=== PATIENT | male | born 1955 | race African-American/Black ===

== ENCOUNTER 2024-02-24 02:08 | Inpatient (IN) | payer BC, MEDICAID, MEDICARE ==
[~2024-02-24] VITALS: Ht 172.7 cm; Wt 145.7 kg
[2024-02-24] VITALS (80 sets, daily range): BP systolic 60–208; BP diastolic 44–143; PULSE 46–129; RESP 14–32; TEMP 97.2–97.3
[2024-02-24] MEDS: MIDAZOLAM HCL 100 MG in DEXT 5% WATER 80 ML IV ONE (02:30)
[2024-02-24] MEDS: SODIUM CHLORIDE 0.9% 1,000 ML IV ONE ×2 (02:34→05:29)
[2024-02-24] MEDS ORDERED: MIDAZOLAM 100MG/100ML PREMIX IV PRN (02:45)
[2024-02-24] MEDS: NOREPINEPHRINE 8MG/250ML PMX 250 ML IV STA (02:56)
[2024-02-24 03:21] LABS: DIFFERENTIAL COMMENT 0; HEMOGLOBIN. 11.2 g/dL (14.0-18.0); MEAN CORPUSCULAR HEMOGLOBIN 33.5 pg (28.0-32.0); MEAN CORPUSCULAR HGB CONC 32.9 g/dL (31.0-37.0); MEAN CORPUSCULAR VOLUME 101.6 fL (80.0-94.0); MEAN PLATELET VOLUME 7.4 fl (7.4-10.4); PLATELET 248 x1000/uL (130-400); RED BLOOD CELL COUNT 3.35 mill/uL (4.7-6.1); RED CELL DISTRIBUTION WIDTH 17.6 % (11.6-14.6); WHITE BLOOD COUNT 8.7 x1000/uL (4.5-11.0)
[2024-02-24 03:23] LABS: CHLORIDE 105 mEq/L (98-107); SODIUM 140 mEq/L (136-145)
[2024-02-24 03:24] LABS: CALCIUM 8.9 mg/dL (8.7-10.4); CARBON DIOXIDE 14 mEq/L (21-32)
[2024-02-24 03:29] LABS: CREATININE 1.7 mg/dL (0.6-1.3); GLUCOSE 245 mg/dL (70-105); UREA NITROGEN BLOOD 21 mg/dL (9-23)
[2024-02-24 03:36] LABS: D-DIMER 18.64 mg/L FEU (<0.50); INR 1.1; PROTHROMBIN TIME 12.5 sec (9.6-11.0)
[2024-02-24 03:39] LABS: BG BASE EXCESS -13.2 mmol/L (-2.0-2.0); BG CARBOXYHEMOGLOBIN 0.1 % (0.5-1.5); BG DEOXYHEMOGLOBIN 4.8 % (0.0-5.0); BG FRACTION INSPIRED OXYGEN 100; BG HCO3 ACT 15.2 mmol/L (22.0-26.0); BG METHEMOGLOBIN 0.4 % (0.0-1.5); BG OXYGEN SATURATION 95.2 % (92.0-98.5); BG OXYHEMOGLOBIN 94.7 % (94.0-97.0); BG PH 7.155 (7.350-7.450); BG PO2 94.5 mmHg (75.0-100.0); BG SAMPLE SITE LEFT RADIAL; BG TOTAL HEMOGLOBIN 13.1 g/dL (12.0-18.0); BG VENT MODE VENT - AC
[2024-02-24 03:41] LABS: LACTIC ACID 11.1 mmol/L (0.4-2.0); POTASSIUM 1.8 mEq/L (3.5-5.1); TROPONIN I HIGH SENSITIVITY 320 ng/L (3.0-53)
[2024-02-24 03:42] LABS: ETHANOL BLOOD < 10 mg/dL (<10)
[2024-02-24 04:12] LABS: GIANT PLATELETS FEW; OVALOCYTES 1+; PLATELET ESTIMATE NORMAL; TARGET CELLS 1+
[2024-02-24] MEDS ORDERED: CLONIDINE 0.1MG TABLET PO PRN (04:45)
[2024-02-24] MEDS ORDERED: MAGNESIUM/ALUMINUM HYDROXIDE/SIMETHICONE 30ML UDC PO PRN (04:45)
[2024-02-24] MEDS ORDERED: PIPERACILLIN/TAZOBACTAM 3.375 G in DEXTROSE 5% WATER 50 ML IV SCH (04:45)
[2024-02-24] MEDS ORDERED: POTASSIUM CHLORIDE 40 MEQ in DEXT 5% WATER 230 ML IV ONE ×3 (05:00→14:45)
[2024-02-24 05:19] LABS: TROPONIN I HIGH SENSITIVITY 1306 ng/L (3.0-53)
[2024-02-24] MEDS: KCL 20MEQ/100ML PREMIX 100 ML IV SCH (05:24)
[2024-02-24] MEDS: MAGNESIUM 2 G PREMIX 50 ML IV NR (05:25)
[2024-02-24] MEDS: PROPOFOL 10MG/ML 100ML 100 ML IV ONE (05:26)
[2024-02-24] MEDS: EPINEPHRINE 5 MG in SODIUM CHLORIDE 0.9% 245 ML IV PRN (05:27)
[2024-02-24] MEDS ORDERED: DEXTROSE 50% WATER 50ML SYRINGE IV PRN (06:00)
[2024-02-24 06:14] LABS: CARBON DIOXIDE 17 mEq/L (21-32); CHLORIDE 105 mEq/L (98-107); SODIUM 138 mEq/L (136-145)
[2024-02-24 06:15] LABS: CALCIUM 8.9 mg/dL (8.7-10.4)
[2024-02-24 06:19] LABS: GLUCOSE 228 mg/dL (70-105); IRON 96 ug/dL (65-175)
[2024-02-24 06:20] LABS: CREATINE KINASE MB FRACTION 16.6 ng/mL (0.5-3.6); UREA NITROGEN BLOOD 31 mg/dL (9-23)
[2024-02-24 06:21] LABS: ALANINE AMINOTRANSFERASE 76 IU/L (10-49); ALBUMIN 3.3 g/dL (3.2-4.8); AMMONIA 46 uMol/L (<32); ASPARTATE AMINOTRANSFERASE 116 IU/L (<34)
[2024-02-24 06:22] LABS: BILIRUBIN DIRECT 0.3 mg/dL (<=3.0); BILIRUBIN TOTAL 0.7 mg/dL (0.1-1.0); PHOSPHORUS 4.5 mg/dL (2.5-4.9); PROTEIN TOTAL 7.2 g/dL (6.0-8.3); TOTAL IRON BINDING CAPACITY 257 ug/dl (250-425)
[2024-02-24 06:32] LABS: FERRITIN 1347 ng/mL (22-322)
[2024-02-24 06:33] LABS: FOLIC ACID (FOLATE) SERUM > 20.00 ng/mL (>5.38)
[2024-02-24 06:35] LABS: POTASSIUM 1.8 mEq/L (3.5-5.1)
[2024-02-24 07:28] LABS: LACTIC ACID 7.5 mmol/L (0.4-2.0)
[2024-02-24 07:29] LABS: VITAMIN B12 SERUM > 2000 pg/mL (211-911)
[2024-02-24] MEDS: IOHEXOL-350 100 ML BOTTLE ONE (07:37)
[2024-02-24] MEDS: PIPERACILLIN/TAZO 3.375G/50ML IV SCH (07:49)
[2024-02-24] MEDS: LACTATED RINGERS 1,000 ML IV ONE (07:50)
[2024-02-24] MEDS: NOREPINEPHRINE 8MG/250ML PMX 250 ML IV PRN (07:51)
[2024-02-24] MEDS: INSULIN LISPRO 100 UNITS/ML SUBCUT SCH (08:20)
[2024-02-24] MEDS ORDERED: NOREPINEPHRINE 32 MG in DEXT 5% WATER 218 ML IV PRN (08:45)
[2024-02-24] MEDS ORDERED: EPINEPHRINE 5 MG in SODIUM CHLORIDE 0.9% 245 ML IV PRN ×2 (08:45→09:00)
[2024-02-24] MEDS ORDERED: PROPOFOL 10MG/ML 100ML 100 ML IV SCH (09:00)
[2024-02-24] MEDS ORDERED: PROPOFOL 10MG/ML 100ML 100 ML IV PRN (09:00)
[2024-02-24] MEDS: BLOOD SUGAR DIAGNOSTIC STRIP TEST SCH (09:06)
[2024-02-24] MEDS: KCL 20MEQ/100ML X 2 FOR TOTAL KCL 40MEQ/200ML IV SCH ×3 (09:08→20:38)
[2024-02-24] MEDS: PANTOPRAZOLE SODIUM 40 MG/VIAL IV SCH (09:08)
[2024-02-24] MEDS: SODIUM BICARBONATE 8.4% 1 MEQ/ML 50ML SYR IV NR (09:09)
[2024-02-24] MEDS: VANCOMYCIN 2,000 MG in DEXT 5% WATER 500 ML IV NR (09:41)
[2024-02-24] MEDS: SODIUM BICARBONATE 100 MEQ in SODIUM CHLORIDE 0.45% 900 ML IV SCH (09:42)
[2024-02-24] MEDS: ENOXAPARIN 120MG/0.8ML SYR SUBCUT SCH (09:43)
[2024-02-24 11:00] LABS: BG BASE EXCESS -12.9 mmol/L (-2.0-2.0); BG CARBOXYHEMOGLOBIN 0.3 % (0.5-1.5); BG DEOXYHEMOGLOBIN 21.8 % (0.0-5.0); BG FRACTION INSPIRED OXYGEN 100; BG METHEMOGLOBIN 0.3 % (0.0-1.5); BG OXYGEN SATURATION 78.1 % (92.0-98.5); BG OXYHEMOGLOBIN 77.6 % (94.0-97.0); BG PCO2 35.4 mmHg (35.0-45.0); BG PH 7.214 (7.350-7.450); BG PO2 46.1 mmHg (75.0-100.0); BG SAMPLE SITE ALINE; BG TOTAL HEMOGLOBIN 13.7 g/dL (12.0-18.0); BG VENT MODE VENT - AC
[2024-02-24] MEDS ORDERED: DOPAMINE 400MG/250ML PREMIX 250 ML IV PRN (11:30)
[2024-02-24] MEDS: NOREPINEPHRINE 32 MG in DEXT 5% WATER 218 ML IV PRN (12:54)
[2024-02-24 13:08] LABS: HEMATOCRIT. 37.3 % (42.0-52.0); HEMOGLOBIN. 12.8 g/dL (14.0-18.0); MEAN CORPUSCULAR HEMOGLOBIN 33.5 pg (28.0-32.0); MEAN CORPUSCULAR HGB CONC 34.3 g/dL (31.0-37.0); MEAN CORPUSCULAR VOLUME 97.8 fL (80.0-94.0); MEAN PLATELET VOLUME 7.6 fl (7.4-10.4); PLATELET 274 x1000/uL (130-400); RED BLOOD CELL COUNT 3.81 mill/uL (4.7-6.1); RED CELL DISTRIBUTION WIDTH 16.5 % (11.6-14.6); WHITE BLOOD COUNT 5.7 x1000/uL (4.5-11.0)
[2024-02-24 13:14] LABS: DIFFERENTIAL COMMENT 1
[2024-02-24 13:23] LABS: CHLORIDE 107 mEq/L (98-107); SODIUM 140 mEq/L (136-145)
[2024-02-24 13:24] LABS: CALCIUM 8.2 mg/dL (8.7-10.4); CARBON DIOXIDE 18 mEq/L (21-32)
[2024-02-24 13:29] LABS: CREATININE 2.3 mg/dL (0.6-1.3); GLUCOSE 276 mg/dL (70-105); UREA NITROGEN BLOOD 33 mg/dL (9-23)
[2024-02-24 13:31] LABS: PHOSPHORUS 1.6 mg/dL (2.5-4.9)
[2024-02-24 13:32] LABS: BG BASE EXCESS -12.9 mmol/L (-2.0-2.0); BG CARBOXYHEMOGLOBIN 0.3 % (0.5-1.5); BG FRACTION INSPIRED OXYGEN 100; BG HCO3 ACT 15.5 mmol/L (22.0-26.0); BG OXYGEN SATURATION 73.9 % (92.0-98.5); BG OXYHEMOGLOBIN 73.7 % (94.0-97.0); BG PCO2 44.4 mmHg (35.0-45.0); BG PO2 43.1 mmHg (75.0-100.0); BG SAMPLE SITE ALINE; BG TOTAL HEMOGLOBIN 14.3 g/dL (12.0-18.0); BG VENT MODE VENT - PRVC
[2024-02-24] MEDS: EPINEPHRINE 10 MG in SODIUM CHLORIDE 0.9% 240 ML IV PRN (13:43)
[2024-02-24 13:50] LABS: POTASSIUM 1.2 mEq/L (3.5-5.1)
[2024-02-24] MEDS ORDERED: IPRATROPIUM BROMIDE (0.02%) 0.5MG/2.5ML NEB HHN SCH (14:00)
[2024-02-24] MEDS: IPRATROPIUM/ALBUTEROL 0.5-3(2.5)MG/3ML NEB HHN SCH (14:21)
[2024-02-24] MEDS: ACETYLCYSTEINE 200MG/ML 20% VIAL 4ML INH SCH (14:22)
[2024-02-24] MEDS ORDERED: KCL 20MEQ/100ML X 2 FOR TOTAL KCL 40MEQ/200ML IV SCH (15:00)
[2024-02-24 15:19] LABS: PLATELET ESTIMATE NORMAL
[2024-02-24] MEDS: METHYLPREDNISOLONE SOD SUCC 40MG/ML (ACT-O-VIAL) IV SCH (16:17)
[2024-02-24 19:48] LABS: CREATINE KINASE MB FRACTION 14.6 ng/mL (0.5-3.6)
[2024-02-24 21:46] LABS: PHOSPHORUS 1.8 mg/dL (2.5-4.9)
[2024-02-24 22:04] LABS: POTASSIUM 1.6 mEq/L (3.5-5.1)
[2024-02-24] MEDS: METHYLPREDNISOLONE SOD SUCC 125MG/2ML (ACT-O-VIAL) IV SCH (22:56)
[2024-02-24] MEDS: POTASSIUM PHOSPHATE 15 MMOL in DEXT 5% WATER 245 ML IV NR (22:59)
[2024-02-24 23:58] LABS: BG BASE EXCESS -6.1 mmol/L (-2.0-2.0); BG CARBOXYHEMOGLOBIN 0.3 % (0.5-1.5); BG DEOXYHEMOGLOBIN 23.4 % (0.0-5.0); BG FRACTION INSPIRED OXYGEN 100; BG METHEMOGLOBIN 0.2 % (0.0-1.5); BG OXYGEN SATURATION 76.5 % (92.0-98.5); BG OXYHEMOGLOBIN 76.1 % (94.0-97.0); BG PCO2 36.5 mmHg (35.0-45.0); BG PH 7.335 (7.350-7.450); BG PO2 39.6 mmHg (75.0-100.0); BG SAMPLE SITE ALINE; BG TOTAL HEMOGLOBIN 14.3 g/dL (12.0-18.0); BG VENT MODE VENT - AC
[2024-02-25] VITALS (111 sets, daily range): BP systolic 78–172; BP diastolic 32–98; PULSE 83–122; RESP 0–33; TEMP 97.7–101.8
[2024-02-25 02:10] LABS: PHOSPHORUS 2.7 mg/dL (2.5-4.9)
[2024-02-25 02:14] LABS: POTASSIUM 1.8 mEq/L (3.5-5.1)
[2024-02-25] MEDS: KCL 20MEQ/100ML PREMIX 100 ML IV NR ×3 (02:28→05:33)
[2024-02-25 08:21] LABS: BG BASE EXCESS -16.4 mmol/L (-2.0-2.0); BG CARBOXYHEMOGLOBIN 0.3 % (0.5-1.5); BG DEOXYHEMOGLOBIN 13.3 % (0.0-5.0); BG FRACTION INSPIRED OXYGEN 100; BG HCO3 ACT 7.8 mmol/L (22.0-26.0); BG METHEMOGLOBIN 1.2 % (0.0-1.5); BG OXYGEN SATURATION 86.5 % (92.0-98.5); BG OXYHEMOGLOBIN 85.2 % (94.0-97.0); BG PCO2 14.6 mmHg (35.0-45.0); BG PH 7.348 (7.350-7.450); BG PO2 50.3 mmHg (75.0-100.0); BG SAMPLE SITE ALINE; BG TOTAL HEMOGLOBIN 5.7 g/dL (12.0-18.0); BG VENT MODE VENT - AC
[2024-02-25 08:49] LABS: HEMATOCRIT. 37.1 % (42.0-52.0); HEMOGLOBIN. 12.9 g/dL (14.0-18.0); MEAN CORPUSCULAR HEMOGLOBIN 32.8 pg (28.0-32.0); MEAN CORPUSCULAR HGB CONC 34.6 g/dL (31.0-37.0); MEAN CORPUSCULAR VOLUME 94.6 fL (80.0-94.0); MEAN PLATELET VOLUME 7.7 fl (7.4-10.4); PLATELET 243 x1000/uL (130-400); RED BLOOD CELL COUNT 3.92 mill/uL (4.7-6.1); RED CELL DISTRIBUTION WIDTH 16.2 % (11.6-14.6); WHITE BLOOD COUNT 15.1 x1000/uL (4.5-11.0)
[2024-02-25 09:01] LABS: LACTIC ACID 3.3 mmol/L (0.4-2.0)
[2024-02-25 09:02] LABS: CHLORIDE 104 mEq/L (98-107); SODIUM 140 mEq/L (136-145)
[2024-02-25 09:03] LABS: CALCIUM 7.5 mg/dL (8.7-10.4); CARBON DIOXIDE 21 mEq/L (21-32)
[2024-02-25 09:08] LABS: DIFFERENTIAL COMMENT 1; GLUCOSE 148 mg/dL (70-105); POTASSIUM 1.8 mEq/L (3.5-5.1); TRIGLYCERIDE 58 mg/dL (0-150); UREA NITROGEN BLOOD 42 mg/dL (9-23)
[2024-02-25 09:09] LABS: LDL CHOLESTEROL 25 mg/dL (5-100)
[2024-02-25 09:10] LABS: CHOLESTEROL 73 mg/dL (<200); HDL CHOLESTEROL 34 mg/dL (>55); PHOSPHORUS 4.4 mg/dL (2.5-4.9)
[2024-02-25 09:12] LABS: T4 FREE 1.12 ng/dL (0.89-1.76)
[2024-02-25 09:13] LABS: THYROID STIMULATING HORMONE 0.34 uIU/mL (0.55-4.78)
[2024-02-25 10:12] LABS: CREATININE 3.5 mg/dL (0.6-1.3)
[2024-02-25 10:14] LABS: TROPONIN I HIGH SENSITIVITY 12766 ng/L (3.0-53)
[2024-02-25] MEDS ORDERED: POTASSIUM CHLORIDE 40 MEQ in DEXT 5% WATER 230 ML IV ONE ×2 (10:15→17:30)
[2024-02-25] MEDS ORDERED: POTASSIUM CHLORIDE 20 MEQ in DEXT 5% WATER 90 ML IV ONE ×2 (10:15→17:30)
[2024-02-25] MEDS: KCL 20MEQ/100ML X 3 FOR TOTAL KCL 60MEQ/300ML IV SCH (11:10)
[2024-02-25] MEDS: SODIUM CHLORIDE 10% FOR INH 15ML NEB INH SCH (12:06)
[2024-02-25 12:43] LABS: PHOSPHORUS 5.1 mg/dL (2.5-4.9)
[2024-02-25 12:55] LABS: POTASSIUM 1.8 mEq/L (3.5-5.1)
[2024-02-25] MEDS: DEXT 5%/0.45% NACL KCL 20MEQ/L 1,000 ML IV SCH (13:47)
[2024-02-25 14:31] LABS: PLATELET ESTIMATE NORMAL
[2024-02-25] MEDS: SODIUM CHLORIDE 3% FOR INH 4ML NEB INH SCH (15:42)
[2024-02-25] MEDS: ACETYLCYSTEINE 200MG/ML 20% VIAL 4ML INH SCH (15:42)
[2024-02-25 16:59] LABS: PHOSPHORUS 4.6 mg/dL (2.5-4.9)
[2024-02-25 17:12] LABS: POTASSIUM 2.1 mEq/L (3.5-5.1)
[2024-02-25] MEDS: KCL 20MEQ/100ML PREMIX 100 ML IV SCH (17:58)
[2024-02-25] MEDS: ACETAMINOPHEN 650MG/20.3ML UDC GT PRN (19:47)
[2024-02-25] MEDS ORDERED: SODIUM CHLORIDE 10% FOR INH 15ML NEB INH SCH (20:00)
[2024-02-25] MEDS: VANCOMYCIN 250MG/5ML ORAL SYRINGE PO SCH (23:34)
[2024-02-26] VITALS (98 sets, daily range): BP systolic 68–195; BP diastolic 31–114; PULSE 96–131; RESP 0–30; TEMP 97.6–99.2
[2024-02-26 00:21] LABS: POTASSIUM 2.2 mEq/L (3.5-5.1)
[2024-02-26 00:24] LABS: PHOSPHORUS 3.7 mg/dL (2.5-4.9)
[2024-02-26] MEDS: KCL 20MEQ/100ML PREMIX 100 ML IV PRN (02:22)
[2024-02-26 08:31] LABS: HEMATOCRIT. 34.1 % (42.0-52.0); HEMOGLOBIN. 12.1 g/dL (14.0-18.0); MEAN CORPUSCULAR HEMOGLOBIN 33.2 pg (28.0-32.0); MEAN CORPUSCULAR HGB CONC 35.4 g/dL (31.0-37.0); MEAN CORPUSCULAR VOLUME 93.9 fL (80.0-94.0); MEAN PLATELET VOLUME 7.8 fl (7.4-10.4); PLATELET 163 x1000/uL (130-400); RED BLOOD CELL COUNT 3.63 mill/uL (4.7-6.1); RED CELL DISTRIBUTION WIDTH 16.4 % (11.6-14.6)
[2024-02-26 08:43] LABS: DIFFERENTIAL COMMENT 1
[2024-02-26 08:45] LABS: CARBON DIOXIDE 20 mEq/L (21-32); CHLORIDE 104 mEq/L (98-107); SODIUM 136 mEq/L (136-145)
[2024-02-26 08:51] LABS: GLUCOSE 229 mg/dL (70-105); UREA NITROGEN BLOOD 59 mg/dL (9-23)
[2024-02-26 08:53] LABS: PHOSPHORUS 3.6 mg/dL (2.5-4.9)
[2024-02-26 09:15] LABS: CREATININE 6.1 mg/dL (0.6-1.3)
[2024-02-26 09:16] LABS: POTASSIUM 1.8 mEq/L (3.5-5.1)
[2024-02-26] MEDS: ENOXAPARIN 120MG/0.8ML SYR SUBCUT SCH (09:49)
[2024-02-26] MEDS: KCL 20MEQ/100ML PREMIX 100 ML IV SCH ×2 (10:20→18:30)
[2024-02-26] MEDS ORDERED: POTASSIUM CHLORIDE 40 MEQ in DEXT 5% WATER 230 ML IV ONE (11:30)
[2024-02-26] MEDS ORDERED: CALCIUM GLUCONATE 1,000 MG in DEXT 5% WATER 90 ML IV ONE (12:00)
[2024-02-26] MEDS: SODIUM BICARBONATE 650 MG TABLET PO SCH (12:01)
[2024-02-26] MEDS: KCL 20MEQ/100ML X 2 FOR TOTAL KCL 40MEQ/200ML IV SCH ×2 (12:01→15:23)
[2024-02-26 12:19] LABS: BG BASE EXCESS -7.6 mmol/L (-2.0-2.0); BG CARBOXYHEMOGLOBIN 0.3 % (0.5-1.5); BG DEOXYHEMOGLOBIN 4.6 % (0.0-5.0); BG FRACTION INSPIRED OXYGEN 60; BG HCO3 ACT 18.2 mmol/L (22.0-26.0); BG METHEMOGLOBIN 0.2 % (0.0-1.5); BG OXYGEN SATURATION 95.4 % (92.0-98.5); BG OXYHEMOGLOBIN 94.9 % (94.0-97.0); BG PCO2 37.7 mmHg (35.0-45.0); BG PH 7.301 (7.350-7.450); BG PO2 77.2 mmHg (75.0-100.0); BG SAMPLE SITE ALINE; BG TOTAL HEMOGLOBIN 12.2 g/dL (12.0-18.0); BG TOTAL RESPIRATORY RATE 30 b/min; BG VENT MODE VENT - AC
[2024-02-26] MEDS: MIDODRINE HCL 5MG TABLET PO SCH (13:18)
[2024-02-26] MEDS: CALCIUM GLUCONATE 1GM PREMIX 50 ML IV NR (13:18)
[2024-02-26 14:47] LABS: PLATELET ESTIMATE NORMAL; SMUDGE CELLS 1+
[2024-02-26] MEDS: POTASSIUM CHLORIDE 20MEQ/PACKET GT SCH (16:36)
[2024-02-26] MEDS: BLOOD SUGAR DIAGNOSTIC STRIP TEST SCH (17:29)
[2024-02-26] MEDS: INSULIN LISPRO 100 UNITS/ML SUBCUT SCH (17:36)
[2024-02-26 19:20] LABS: POTASSIUM 2.3 mEq/L (3.5-5.1)
[2024-02-26] MEDS: PIPERACILLIN/TAZO 3.375G/50ML IV SCH (20:12)
[2024-02-27] VITALS (105 sets, daily range): BP systolic 33–157; BP diastolic 13–129; PULSE 90–139; RESP 0–31; TEMP 97.8–98.7
[2024-02-27 00:11] LABS: POTASSIUM 3.4 mEq/L (3.5-5.1)
[2024-02-27 04:57] LABS: HEMATOCRIT. 32.8 % (42.0-52.0); HEMOGLOBIN. 11.4 g/dL (14.0-18.0); MEAN CORPUSCULAR HEMOGLOBIN 32.6 pg (28.0-32.0); MEAN CORPUSCULAR HGB CONC 34.6 g/dL (31.0-37.0); MEAN CORPUSCULAR VOLUME 94.3 fL (80.0-94.0); MEAN PLATELET VOLUME 8.2 fl (7.4-10.4); PLATELET 153 x1000/uL (130-400); RED BLOOD CELL COUNT 3.48 mill/uL (4.7-6.1); WHITE BLOOD COUNT 19.4 x1000/uL (4.5-11.0)
[2024-02-27 05:05] LABS: DIFFERENTIAL COMMENT 1
[2024-02-27 05:11] LABS: CREATININE 7.1 mg/dL (0.6-1.3)
[2024-02-27 05:13] LABS: POTASSIUM 2.3 mEq/L (3.5-5.1)
[2024-02-27] MEDS ORDERED: LIDOCAINE HCL 1% 10 MG/ML 10ML VIAL ONE (07:28)
[2024-02-27] MEDS ORDERED: POTASSIUM CHLORIDE 20MEQ TABLET SR PO NR (07:30)
[2024-02-27] MEDS ORDERED: POTASSIUM CHLORIDE 40 MEQ in DEXT 5% WATER 230 ML IV ONE (07:30)
[2024-02-27] MEDS: IPRATROPIUM/ALBUTEROL 0.5-3(2.5)MG/3ML NEB HHN PRN (08:19)
[2024-02-27] MEDS: POTASSIUM CHLORIDE 20MEQ/PACKET PO NR (09:14)
[2024-02-27] MEDS: KCL 20MEQ/100ML X 2 FOR TOTAL KCL 40MEQ/200ML IV SCH (09:15)
[2024-02-27 10:06] LABS: ANISOCYTOSIS 1+; NUCLEATED RED BLOOD CELLS 1 /100 WBC; PLATELET ESTIMATE NORMAL
[2024-02-27 10:59] LABS: BG CARBOXYHEMOGLOBIN 0.2 % (0.5-1.5); BG FRACTION INSPIRED OXYGEN 100; BG HCO3 ACT 11.1 mmol/L (22.0-26.0); BG METHEMOGLOBIN 0.5 % (0.0-1.5); BG OXYHEMOGLOBIN 98.3 % (94.0-97.0); BG PCO2 18.3 mmHg (35.0-45.0); BG PO2 241.9 mmHg (75.0-100.0); BG SAMPLE SITE ALINE; BG VENT MODE VENT - AC
[2024-02-27 12:13] LABS: BG BASE EXCESS -14.1 mmol/L (-2.0-2.0); BG CARBOXYHEMOGLOBIN 0.2 % (0.5-1.5); BG DEOXYHEMOGLOBIN 0.9 % (0.0-5.0); BG FRACTION INSPIRED OXYGEN 100; BG HCO3 ACT 11.6 mmol/L (22.0-26.0); BG METHEMOGLOBIN 0.5 % (0.0-1.5); BG OXYGEN SATURATION 99.1 % (92.0-98.5); BG OXYHEMOGLOBIN 98.4 % (94.0-97.0); BG PCO2 26.9 mmHg (35.0-45.0); BG PH 7.254 (7.350-7.450); BG PO2 330.7 mmHg (75.0-100.0); BG SAMPLE SITE ALINE; BG TOTAL HEMOGLOBIN 10.4 g/dL (12.0-18.0); BG VENT MODE VENT - AC
[2024-02-27 13:18] LABS: BG BASE EXCESS -14.7 mmol/L (-2.0-2.0); BG CARBOXYHEMOGLOBIN 0.3 % (0.5-1.5); BG DEOXYHEMOGLOBIN 13.9 % (0.0-5.0); BG FRACTION INSPIRED OXYGEN 44; BG HCO3 ACT 14.6 mmol/L (22.0-26.0); BG METHEMOGLOBIN 0.3 % (0.0-1.5); BG OXYHEMOGLOBIN 85.5 % (94.0-97.0); BG PCO2 48.2 mmHg (35.0-45.0); BG PH 7.098 (7.350-7.450); BG PO2 62.6 mmHg (75.0-100.0); BG SAMPLE SITE ALINE; BG TOTAL HEMOGLOBIN 11.5 g/dL (12.0-18.0); BG VENT MODE NASAL CANNULA
[2024-02-27 16:38] LABS: POTASSIUM 3.2 mEq/L (3.5-5.1)
[2024-02-27 21:36] LABS: POTASSIUM 3.6 mEq/L (3.5-5.1)
[2024-02-27] MEDS: DEXT 5% IV NR (21:50)
[2024-02-27] MEDS: WATER IV NR (21:50)
[2024-02-27] MEDS: POTASSIUM CHLORIDE IV NR (21:50)
[2024-02-28] VITALS (102 sets, daily range): BP systolic 60–182; BP diastolic 43–111; PULSE 84–110; RESP 0–31; TEMP 97.3–99.4
[2024-02-28 02:16] LABS: POTASSIUM 3.2 mEq/L (3.5-5.1)
[2024-02-28 02:31] LABS: HEMOGLOBIN 10.6 g/dL (14.0-18.0); MEAN CORPUSCULAR HGB CONC 35.4 g/dL (31.0-37.0); MEAN CORPUSCULAR VOLUME 93.1 fL (80.0-94.0); PLATELET 114 x1000/uL (130-400); RED BLOOD CELL COUNT 3.22 mill/uL (4.7-6.1); RED CELL DISTRIBUTION WIDTH 16.2 % (11.6-14.6); WHITE BLOOD COUNT 17.5 x1000/uL (4.5-11.0)
[2024-02-28] MEDS ORDERED: POTASSIUM CHLORIDE 60 MEQ in DEXT 5% WATER 220 ML IV ONE (03:45)
[2024-02-28 04:41] LABS: CALCIUM 6.4 mg/dL (8.7-10.4)
[2024-02-28 04:46] LABS: HEMATOCRIT. 29.9 % (42.0-52.0); HEMOGLOBIN. 10.5 g/dL (14.0-18.0); MEAN CORPUSCULAR HEMOGLOBIN 32.5 pg (28.0-32.0); MEAN PLATELET VOLUME 8.1 fl (7.4-10.4); PLATELET 117 x1000/uL (130-400); RED BLOOD CELL COUNT 3.22 mill/uL (4.7-6.1); WHITE BLOOD COUNT 17.3 x1000/uL (4.5-11.0)
[2024-02-28 04:48] LABS: CREATININE 7.8 mg/dL (0.6-1.3)
[2024-02-28 04:50] LABS: POTASSIUM 2.7 mEq/L (3.5-5.1)
[2024-02-28] MEDS: KCL 20MEQ/100ML X 3 FOR TOTAL KCL 60MEQ/200ML IV SCH (04:58)
[2024-02-28 07:00] LABS: DIFFERENTIAL COMMENT 1
[2024-02-28 09:32] LABS: POTASSIUM 2.8 mEq/L (3.5-5.1)
[2024-02-28] MEDS ORDERED: POTASSIUM CHLORIDE 40 MEQ in DEXT 5% WATER 230 ML IV ONE (09:45)
[2024-02-28] MEDS ORDERED: KCL 20MEQ/100ML X 2 FOR TOTAL KCL 40MEQ/200ML IV SCH (10:00)
[2024-02-28 10:07] LABS: ANISOCYTOSIS 1+; NUCLEATED RED BLOOD CELLS 3 /100 WBC; PLATELET ESTIMATE MARKEDLY DECREASED
[2024-02-28] MEDS: POTASSIUM CHLORIDE 20MEQ/PACKET PO SCH (12:00)
[2024-02-28 15:52] LABS: POTASSIUM 3.9 mEq/L (3.5-5.1)
[2024-02-28 21:42] LABS: POTASSIUM 3.4 mEq/L (3.5-5.1)
[2024-02-29] VITALS (106 sets, daily range): BP systolic 90–148; BP diastolic 61–93; PULSE 70–93; RESP 0–30; TEMP 97.3–98.6
[2024-02-29 05:45] LABS: CALCIUM 6.5 mg/dL (8.7-10.4)
[2024-02-29 05:49] LABS: HEMATOCRIT 27.8 % (42.0-52.0); HEMOGLOBIN 9.7 g/dL (14.0-18.0); MEAN CORPUSCULAR HEMOGLOBIN 32.8 pg (28.0-32.0); MEAN CORPUSCULAR VOLUME 93.9 fL (80.0-94.0); PLATELET 103 x1000/uL (130-400); RED BLOOD CELL COUNT 2.96 mill/uL (4.7-6.1); RED CELL DISTRIBUTION WIDTH 16.2 % (11.6-14.6); WHITE BLOOD COUNT 11.6 x1000/uL (4.5-11.0)
[2024-02-29 05:51] LABS: CREATININE 8.2 mg/dL (0.6-1.3)
[2024-02-29 05:59] LABS: POTASSIUM 2.8 mEq/L (3.5-5.1)
[2024-02-29] MEDS ORDERED: WATER IV ONE (06:30)
[2024-02-29] MEDS ORDERED: POTASSIUM CHLORIDE IV ONE (06:30)
[2024-02-29] MEDS ORDERED: DEXT 5% IV ONE (06:30)
[2024-02-29] MEDS: KCL 20MEQ/100ML PREMIX 100 ML IV SCH ×2 (09:11→15:32)
[2024-02-29] MEDS: POTASSIUM CHLORIDE 20MEQ/PACKET PO NR ×2 (09:11→16:32)
[2024-02-29 14:49] LABS: POTASSIUM 3.3 mEq/L (3.5-5.1)
[2024-03-01] VITALS (110 sets, daily range): BP systolic 85–131; BP diastolic 53–100; PULSE 66–85; RESP 0–21; TEMP 93.1–97.8
[2024-03-01 04:58] LABS: HEMATOCRIT. 31.6 % (42.0-52.0); HEMOGLOBIN. 10.8 g/dL (14.0-18.0); MEAN CORPUSCULAR HEMOGLOBIN 32.7 pg (28.0-32.0); MEAN CORPUSCULAR HGB CONC 34.4 g/dL (31.0-37.0); MEAN CORPUSCULAR VOLUME 95.2 fL (80.0-94.0); MEAN PLATELET VOLUME 8.7 fl (7.4-10.4); PLATELET 97 x1000/uL (130-400); RED BLOOD CELL COUNT 3.31 mill/uL (4.7-6.1); RED CELL DISTRIBUTION WIDTH 16.7 % (11.6-14.6); WHITE BLOOD COUNT 11.3 x1000/uL (4.5-11.0)
[2024-03-01 04:59] LABS: DIFFERENTIAL COMMENT 1
[2024-03-01 05:13] LABS: CALCIUM 6.6 mg/dL (8.7-10.4); POTASSIUM 3.8 mEq/L (3.5-5.1)
[2024-03-01 05:37] LABS: CREATININE 8.9 mg/dL (0.6-1.3)
[2024-03-01 05:39] LABS: PLATELET ESTIMATE SLIGHTLY DECREASED; TEAR DROP CELLS 2+
[2024-03-01 05:40] LABS: OVALOCYTES 1+; TARGET CELLS 1+
[2024-03-01 17:40] LABS: BG BASE EXCESS -15.5 mmol/L (-2.0-2.0); BG CARBOXYHEMOGLOBIN 0.3 % (0.5-1.5); BG FRACTION INSPIRED OXYGEN 50; BG HCO3 ACT 11.8 mmol/L (22.0-26.0); BG METHEMOGLOBIN 0.4 % (0.0-1.5); BG OXYHEMOGLOBIN 98.3 % (94.0-97.0); BG PCO2 32.9 mmHg (35.0-45.0); BG PH 7.173 (7.350-7.450); BG PO2 238.2 mmHg (75.0-100.0); BG SAMPLE SITE RIGHT RADIAL; BG TOTAL HEMOGLOBIN 10.7 g/dL (12.0-18.0); BG VENT MODE VENT - AC
[2024-03-02] VITALS (101 sets, daily range): BP systolic 106–175; BP diastolic 52–89; PULSE 74–108; RESP 6–22; TEMP 93.3–98.4; O2SAT 99
[2024-03-02 01:20] LABS: BG BASE EXCESS -18.1 mmol/L (-2.0-2.0); BG CARBOXYHEMOGLOBIN 0.3 % (0.5-1.5); BG FRACTION INSPIRED OXYGEN 50; BG HCO3 ACT 12.3 mmol/L (22.0-26.0); BG METHEMOGLOBIN 0.5 % (0.0-1.5); BG OXYHEMOGLOBIN 98.2 % (94.0-97.0); BG PCO2 48.3 mmHg (35.0-45.0); BG PH 7.024 (7.350-7.450); BG PO2 198.6 mmHg (75.0-100.0); BG SAMPLE SITE ALINE; BG TOTAL HEMOGLOBIN 11.3 g/dL (12.0-18.0); BG VENT MODE VENT - AC
[2024-03-02 02:21] LABS: HEMATOCRIT. 30.7 % (42.0-52.0); HEMOGLOBIN. 10.3 g/dL (14.0-18.0); MEAN CORPUSCULAR HEMOGLOBIN 32.1 pg (28.0-32.0); MEAN CORPUSCULAR HGB CONC 33.6 g/dL (31.0-37.0); MEAN CORPUSCULAR VOLUME 95.5 fL (80.0-94.0); MEAN PLATELET VOLUME 8.4 fl (7.4-10.4); PLATELET 123 x1000/uL (130-400); RED BLOOD CELL COUNT 3.21 mill/uL (4.7-6.1); RED CELL DISTRIBUTION WIDTH 17.4 % (11.6-14.6); WHITE BLOOD COUNT 11.7 x1000/uL (4.5-11.0)
[2024-03-02 02:26] LABS: CHLORIDE 108 mEq/L (98-107); POTASSIUM 3.9 mEq/L (3.5-5.1); SODIUM 132 mEq/L (136-145)
[2024-03-02 02:27] LABS: CALCIUM 6.5 mg/dL (8.7-10.4); CARBON DIOXIDE 13 mEq/L (21-32)
[2024-03-02 02:32] LABS: GLUCOSE 160 mg/dL (70-105); UREA NITROGEN BLOOD 99 mg/dL (9-23)
[2024-03-02 02:33] LABS: AMYLASE 188 IU/L (30-118); LACTATE DEHYDROGENASE > 750 IU/L (120-246)
[2024-03-02 02:34] LABS: ALANINE AMINOTRANSFERASE 32 IU/L (10-49); ALBUMIN 3.2 g/dL (3.2-4.8); ASPARTATE AMINOTRANSFERASE 47 IU/L (<34); BILIRUBIN DIRECT 0.1 mg/dL (<=3.0); BILIRUBIN TOTAL 0.3 mg/dL (0.1-1.0); GAMMA GLUTAMYL TRANSPEPTIDASE 126 IU/L (<73); PROTEIN TOTAL 5.8 g/dL (6.0-8.3)
[2024-03-02 02:35] LABS: CREATININE 9.4 mg/dL (0.6-1.3)
[2024-03-02 02:39] LABS: PHOSPHORUS 9.8 mg/dL (2.5-4.9)
[2024-03-02 02:50] LABS: DIFFERENTIAL COMMENT 1; PARTIAL THROMBOPLASTIN TIME 32.8 sec (23.4-31.0); PROTHROMBIN TIME 10.8 sec (9.6-11.0)
[2024-03-02 03:28] LABS: OVALOCYTES 1+; PLATELET ESTIMATE NORMAL; TEAR DROP CELLS 1+
[2024-03-02 17:27] LABS: BG BASE EXCESS -19.4 mmol/L (-2.0-2.0); BG CARBOXYHEMOGLOBIN 0.3 % (0.5-1.5); BG DEOXYHEMOGLOBIN 1.6 % (0.0-5.0); BG FRACTION INSPIRED OXYGEN 50; BG HCO3 ACT 10.5 mmol/L (22.0-26.0); BG METHEMOGLOBIN 0.4 % (0.0-1.5); BG OXYGEN SATURATION 98.4 % (92.0-98.5); BG OXYHEMOGLOBIN 97.7 % (94.0-97.0); BG PCO2 40.5 mmHg (35.0-45.0); BG PH 7.031 (7.350-7.450); BG PO2 147.4 mmHg (75.0-100.0); BG SAMPLE SITE ALINE; BG TOTAL HEMOGLOBIN 10.7 g/dL (12.0-18.0); BG TOTAL RESPIRATORY RATE 17 b/min; BG VENT MODE VENT - AC
[2024-03-02] MEDS: THIAMINE HCL 100MG TABLET PO NR (20:05)
[2024-03-02] MEDS: SODIUM BICARBONATE 8.4% 1 MEQ/ML 50ML SYR IV ONE (20:05)
[2024-03-02] MEDS: FAMOTIDINE 20MG/2ML VIAL IV SCH (20:05)
[2024-03-02] MEDS: PIPERACILLIN/TAZO 3.375G/50ML 50 ML IV SCH (20:45)
[2024-03-02] MEDS: SODIUM CHLORIDE 3% 500 ML IV ONE (20:49)
[2024-03-02] MEDS: METHYLPREDNISOLONE SOD SUCC IV NR (20:49)
[2024-03-02 21:05] LABS: BG BASE EXCESS -18.2 mmol/L (-2.0-2.0); BG CARBOXYHEMOGLOBIN 0.3 % (0.5-1.5); BG DEOXYHEMOGLOBIN 1.7 % (0.0-5.0); BG FRACTION INSPIRED OXYGEN 50; BG HCO3 ACT 9.9 mmol/L (22.0-26.0); BG METHEMOGLOBIN 0.7 % (0.0-1.5); BG OXYGEN SATURATION 98.3 % (92.0-98.5); BG OXYHEMOGLOBIN 97.3 % (94.0-97.0); BG PCO2 32.4 mmHg (35.0-45.0); BG PH 7.103 (7.350-7.450); BG PO2 161.8 mmHg (75.0-100.0); BG SAMPLE SITE ALINE; BG TOTAL HEMOGLOBIN 7.5 g/dL (12.0-18.0); BG VENT MODE VENT - AC
[2024-03-02] MEDS: THIAMINE HCL 100MG TABLET PO SCH (21:25)
[2024-03-02] MEDS: SODIUM BICARBONATE 8.4% 1 MEQ/ML 50ML SYR IV NR ×2 (21:25→22:28)
[2024-03-02 22:08] LABS: BG BASE EXCESS -12.5 mmol/L (-2.0-2.0); BG CARBOXYHEMOGLOBIN 0.1 % (0.5-1.5); BG DEOXYHEMOGLOBIN 1.6 % (0.0-5.0); BG FRACTION INSPIRED OXYGEN 50; BG METHEMOGLOBIN 0.6 % (0.0-1.5); BG OXYGEN SATURATION 98.4 % (92.0-98.5); BG OXYHEMOGLOBIN 97.7 % (94.0-97.0); BG PCO2 41.1 mmHg (35.0-45.0); BG PO2 147.9 mmHg (75.0-100.0); BG SAMPLE SITE ALINE; BG TOTAL HEMOGLOBIN 8.7 g/dL (12.0-18.0); BG VENT MODE VENT - AC
[2024-03-02] MEDS: METHYLPREDNISOLONE SOD SUCC 125MG/2ML (ACT-O-VIAL) IV SCH (22:27)
[2024-03-02] MEDS: EPINEPHRINE 5 MG in SODIUM CHLORIDE 0.9% 245 ML IV STA (22:28)
[2024-03-02 23:08] LABS: BG CARBOXYHEMOGLOBIN 0.3 % (0.5-1.5); BG DEOXYHEMOGLOBIN 1.6 % (0.0-5.0); BG FRACTION INSPIRED OXYGEN 50; BG HCO3 ACT 19.7 mmol/L (22.0-26.0); BG METHEMOGLOBIN 0.3 % (0.0-1.5); BG OXYGEN SATURATION 98.4 % (92.0-98.5); BG OXYHEMOGLOBIN 97.8 % (94.0-97.0); BG PCO2 49.3 mmHg (35.0-45.0); BG PH 7.219 (7.350-7.450); BG SAMPLE SITE ALINE; BG TOTAL HEMOGLOBIN 11.7 g/dL (12.0-18.0); BG VENT MODE VENT - AC
== END 2024-03-02 23:50 | DRG 870 ==
LOC: ER 02:08 → CVICU 02:55
PROVIDERS: ADMIT Internal Medicine; ATTEND Internal Medicine
PROC: 5A1955Z Respiratory Ventilation, Greater than 96 Consecutive Hours (ICD-10-PCS; principal; 2024-02-24)
PROC: 0BH17EZ Insertion of Endotracheal Airway into Trachea, Via Natural or Artificial Opening (ICD-10-PCS; 2024-02-24)
PROC: 03HY32Z Insertion of Monitoring Device into Upper Artery, Percutaneous Approach (ICD-10-PCS; 2024-02-24)
PROC: 5A12012 Performance of Cardiac Output, Single, Manual (ICD-10-PCS; 2024-02-24)
PROC: 02HV33Z Insertion of Infusion Device into Superior Vena Cava, Percutaneous Approach (ICD-10-PCS; 2024-02-27)
PROC: B548ZZA Ultrasonography of Superior Vena Cava, Guidance (ICD-10-PCS; 2024-02-27)
DX: A41.9 Sepsis, unspecified organism (principal); J96.01 Acute respiratory failure with hypoxia; G93.6 Cerebral edema; I21.A1 Myocardial infarction type 2; J18.9 Pneumonia, unspecified organism; R65.21 Severe sepsis with septic shock; N17.0 Acute kidney failure with tubular necrosis; G93.1 Anoxic brain damage, not elsewhere classified; I50.22 Chronic systolic (congestive) heart failure; I47.20 Ventricular tachycardia, unspecified; A04.72 Enterocolitis due to Clostridium difficile, not specified as recurrent; I46.9 Cardiac arrest, cause unspecified; E87.6 Hypokalemia; I44.0 Atrioventricular block, first degree; I45.10 Unspecified right bundle-branch block; K59.81 Ogilvie syndrome; Z87.11 Personal history of peptic ulcer disease; I48.91 Unspecified atrial fibrillation; E11.9 Type 2 diabetes mellitus without complications; D53.9 Nutritional anemia, unspecified; R74.01 Elevation of levels of liver transaminase levels; E78.5 Hyperlipidemia, unspecified; E03.9 Hypothyroidism, unspecified; E83.42 Hypomagnesemia; F20.9 Schizophrenia, unspecified; I11.0 Hypertensive heart disease with heart failure; Z79.01 Long term (current) use of anticoagulants; Z79.4 Long term (current) use of insulin; Z79.899 Other long term (current) drug therapy
CPT/HCPCS: 31500; 36415; 36573; 36600; 71045; 71275; 74018; 74176; 76700; 78610; 80048; 80053; 80061; 80076; 80202; 80320; 82140; 82150; 82248; 82270; 82375; 82550; 82553; 82607; 82728; 82746; 82805; 82962; 82977; 83036; 83540; 83550; 83605; 83615; 83735; 83880; 84100; 84132; 84145; 84439; 84443; 84484; 85025; 85027; 85379; 86850; 86900; 87015; 87045; 87070; 87427; 87449; 87493; 89055; 93005; 93306; 93970; 94002; 94003; 94640; 99291; A6261; A9512; C1725; C9113; J0610; J1650; J1815; J2250; J2543; J2704; J2920; J2930; J3370; J3475; J3480; J3490; J7030; J7050; J7060; J7131; J7608; Q9967; A4315; G0480